=== PATIENT | female | born 1980 | race Caucasian/White ===

== ENCOUNTER 2019-02-22 07:30 | Emergency (ER) | payer BC ==
[2019-02-22 07:41] VITALS: BP 118/86
--- NOTE | 2019-02-22 07:56 | UC ---
Eye Complaint HPI - History of Current Complaint Chief Complaint: UCEye Stated Complaint: RIGHT EYE COMPLAINT Time Seen by Provider: 02/22/19 07:51 Hx Last Menstrual Period: 02/03/19 Pain Intensity: 0 - Allergies/Home Medications Allergies/Adverse Reactions: Allergies Allergy/AdvReac Type Severity Reaction Status Date / Time No Known Allergies Allergy Verified 02/22/19 07:36 PMH/Surg Hx/FS Hx/Imm Hx - Surgical History Surgical History: Yes Surgery Procedure, Year, and Place: 06/30/14 - Family History Known Family History: Positive: None - Social History Alcohol Use: Occasionally Substance Use Type: None Smoking Status (MU): Never Smoked Tobacco Physical Exam Vital Signs: Initial Vital Signs Temp 97.6 F 02/22/19 07:36 Pulse 73 02/22/19 07:36 Resp 15 02/22/19 07:36 BP 118/86 02/22/19 07:36 Pulse Ox 100 02/22/19 07:36 Discharge ED - Discharge Plan Referrals: Charlene Griggs CNM [Primary Care Provider] -
--- NOTE | 2019-02-22 08:09 | UC ---
Eye Complaint HPI - HPI Summary HPI Summary: 38 y/o female presents to the urgent care c/o R eye erythema, itchiness, w/ yellowish drainage for the past 2 days. Pt has been using saline drops at home. Pt states the L eye is kind of irritated also, but not as much as the R eye. This morning she woke up w/ a lot of yellowish crusting. Pt denies fever, PRAJAPATI, visual changes, photophobia, She doesn't wear contact lenses. She has had mild nasal congestion w/. clear discharge. No sick contacts. Pt denies fever, dizziness, SOB, chest pain,abdominal pain, N/V/D. - History of Current Complaint Chief Complaint: UCEye Stated Complaint: RIGHT EYE COMPLAINT Time Seen by Provider: 02/22/19 07:51 Hx Obtained From: Patient Hx Last Menstrual Period: 02/03/19 Onset/Duration: Gradual Onset, Lasting Days - 2 days, Still Present, Worse Since - RT eye w/ yellowish crusting eye discharge Timing: Constant Severity Initially: Mild Severity Currently: Mild Pain Intensity: 0 Pain Scale Used: 0-10 Numeric Location of Injury: Conjunctiva - RT eye redness w/ yellowish drainage Character: Foreign Body Sensation Aggravating Factor(s): Blinking Alleviating Factor(s): Nothing Associated Signs And Symptoms: Positive: Drainage (Purulent) - yellowish. Negative: Vision Impairment Bilateral, Fever, Swelling - Risk Factors Penetrating Injury Risk Factor: Negative Globe Rupture Risk Factors: Negative Acute Glaucoma Risk Factors: Negative Optic Artery Occlusion Risk Factors: Negative - Allergies/Home Medications Allergies/Adverse Reactions: Allergies Allergy/AdvReac Type Severity Reaction Status Date / Time No Known Allergies Allergy Verified 02/22/19 07:36 PMH/Surg Hx/FS Hx/Imm Hx Previously Healthy: Yes - Pt denies PMHX - Surgical History Surgical History: Yes Surgery Procedure, Year, and Place: 06/30/14 - Family History Known Family History: Positive: Diabetes - Social History Occupation: Employed Full-time Lives: With Family Alcohol Use: Occasionally Substance Use Type: None Smoking Status (MU): Never Smoked Tobacco Review of Systems All Other Systems Reviewed And Are Negative: Yes Constitutional: Positive: Negative Skin: Positive: Negative Eyes: Positive: Drainage - yellowish, Eye Redness - RT eye ENT: Positive: Nasal Discharge - mild clear Respiratory: Positive: Negative Cardiovascular: Positive: Negative Gastrointestinal: Positive: Negative Genitourinary: Positive: Negative Motor: Positive: Negative Neurovascular: Positive: Negative Musculoskeletal: Positive: Negative Neurological: Positive: Negative Psychological: Positive: Negative Is Patient Immunocompromised?: No Physical Exam - Summary Physical Exam Summary: Vital Signs Reviewed: Yes General: Well appearing, well nourished female in no apparent pain distress Eyes: Positive:RT Conjunctiva Inflamed - Visual acuity: WNL,Visual cotton: full to confrontation. PERRLA, EOMI intact w/out limitation or complaint of pain. eyelashes clear. RT eye w/mild tearing and yellowish drainage observed. No ciliary flush. No chemosis, No photophobia. Normal fundoscopic exam; no proptosis, exophthalmos, nystagmus. ENT: Positive: Normal ENT inspection, Hearing grossly normal, Pharynx normal, Nasal congestion, Nasal drainage - clear, TMs normal - B/L external ear canal clear , TM's WNL. Negative: Tonsillar swelling, Tonsillar exudate Neck: Positive: Supple, Nontender, No Lymphadenopathy Respiratory: Positive: Chest nontender, Lungs clear, Normal breath sounds, No respiratory distress Cardiovascular: Positive: RRR, No Murmur, Pulses Normal, Brisk Capillary Refill Abdomen Description: Positive: Nontender, No Organomegaly, Soft. Negative: CVA Tenderness (R), CVA Tenderness (L) Bowel Sounds: Positive: Present Musculoskeletal: Positive: Strength Intact, ROM Intact, No Edema Neurological Exam: Normal Psychological Exam: Normal Skin Exam: Normal Triage Information Reviewed: Yes Vital Signs: Initial Vital Signs Temp 97.6 F 02/22/19 07:36 Pulse 73 02/22/19 07:36 Resp 15 02/22/19 07:36 BP 118/86 02/22/19 07:36 Pulse Ox 100 02/22/19 07:36 Eye Complaint Course/Dx - Course Course Of Treatment: 38 y/o female presents to the urgent care c/o R eye erythema, itchiness, w/ yellowish drainage for the past 2 days. Pt has been using saline drops at home. Pt states the L eye is kind of irritated also, but not as much as the R eye. This morning she woke up w/ a lot of yellowish crusting. Pt denies fever, PRAJAPATI, visual changes, photophobia, She doesn't wear contact lenses. She has had mild nasal congestion w/. clear discharge. No sick contacts. Pt denies fever, dizziness, SOB, chest pain,abdominal pain, N/V/D. Hx obtained. PE abnormal findings: B/L PERRLA, EOMI, fundi grossly normal, no tender to palpation. RT conjunctiva moderately injected, mild yellowish discharge, LF conjunctiva clear. Most likely Bacterial conjunctivitis. Pt Rx Ciprofloxacin ophthalmic drops and advised if symptoms do not improve or worsen to f/u with [employer] Developer Dr Doherty 2-3 days. Pt understood and agreed. - Differential Dx/Diagnosis Differential Diagnosis/HQI/PQRI: Conjunctivitis, Corneal Abrasion, Foreign Body , Keratitis, Periorbital Cellulitis, Orbital Cellulitis, Uveitis Provider Diagnosis: Acute conjunctivitis, right eye Discharge ED - Sign-Out/Discharge Documenting (check all that apply): Patient Departure - D/C home All imaging exams completed and their final reports reviewed: No Studies - Discharge Plan Condition: Stable Disposition: HOME Prescriptions: Ciprofloxacin 0.3% OPTH.GUSTABO* [Cipro 0.3% Opth*] 1 drop RIGHT EYE Q2H #1 btl Patient Education Materials: Conjunctivitis (ED) Referrals: Charlene Griggs CNM [Primary Care Provider] - 3 Days Charlene Doherty MD [Medical Doctor] - If Needed Additional Instructions: 1-Please apply Ciprofloxacin ophthalmic drops as instructed and finish the full course of treatment to avoid recurrent infection. 2-If you do not improve or if symptoms worsen please f/u with cable hooker Dr Doherty for further evaluation and treatment - Billing Disposition and Condition Condition: STABLE Disposition: Home - Attestation Statements Provider Attestation: I was available for consult. This patient was seen by the SHANTI. The patient was not presented to, seen by, or examined by me. -George
== END 2019-02-22 08:25 | disposition home or self-care (01) ==
LOC: UCCORT 07:30
DX: H10.31 Unspecified acute conjunctivitis, right eye (principal)
CPT/HCPCS: 99212; G0463